=== PATIENT | male | born 1985 | race Two or more races ===

== ENCOUNTER 2020-11-22 07:24 | Outpatient (CLI) | payer OTHER | END 2020-11-22 07:33 | disposition home or self-care (01) | LOC: LAB 07:24 | PROVIDERS: ATTEND Internal Medicine Hematology & Oncology | DX: D50.8 Other iron deficiency anemias (principal); R79.89 Other specified abnormal findings of blood chemistry; I10 Essential (primary) hypertension; R74.02 Elevation of levels of lactic acid dehydrogenase [LDH]; K76.89 Other specified diseases of liver; D63.8 Anemia in other chronic diseases classified elsewhere; D55.0 Anemia due to glucose-6-phosphate dehydrogenase [G6PD] deficiency; D51.1 Vitamin B12 deficiency anemia due to selective vitamin B12 malabsorption with proteinuria; D51.0 Vitamin B12 deficiency anemia due to intrinsic factor deficiency; D63.1 Anemia in chronic kidney disease; E03.8 Other specified hypothyroidism; E06.3 Autoimmune thyroiditis ==

== ENCOUNTER 2020-11-22 08:18 | Outpatient (CLI) | payer OTHER | END 2020-11-22 08:22 | disposition home or self-care (01) | LOC: SONOGRAMA 08:18 | PROVIDERS: ATTEND Internal Medicine Hematology & Oncology | DX: E04.2 Nontoxic multinodular goiter (principal); D50.8 Other iron deficiency anemias ==

== ENCOUNTER 2021-02-02 06:52 | Outpatient (CLI) | payer OTHER | END 2021-02-02 06:57 | disposition home or self-care (01) | LOC: LAB 06:52 | PROVIDERS: ATTEND Internal Medicine Hematology & Oncology | DX: D50.8 Other iron deficiency anemias (principal); R79.89 Other specified abnormal findings of blood chemistry; R74.02 Elevation of levels of lactic acid dehydrogenase [LDH]; K76.89 Other specified diseases of liver; D63.1 Anemia in chronic kidney disease; N18.9 Chronic kidney disease, unspecified; N39.0 Urinary tract infection, site not specified; R80.8 Other proteinuria; R94.4 Abnormal results of kidney function studies; E04.8 Other specified nontoxic goiter ==

== ENCOUNTER → 2021-02-02 | Outpatient (CLI) | payer OTHER | END | disposition home or self-care (01) | LOC: SONOGRAMA 07:42 | PROVIDERS: ATTEND Internal Medicine Hematology & Oncology | DX: D50.8 Other iron deficiency anemias (principal); E04.8 Other specified nontoxic goiter; D63.1 Anemia in chronic kidney disease ==

== ENCOUNTER → 2021-02-04 | Outpatient (CLI) | payer OTHER | END | disposition home or self-care (01) | LOC: LAB 08:08 | PROVIDERS: ATTEND Internal Medicine Hematology & Oncology | DX: D50.8 Other iron deficiency anemias (principal); R79.89 Other specified abnormal findings of blood chemistry; I10 Essential (primary) hypertension; R74.02 Elevation of levels of lactic acid dehydrogenase [LDH]; K76.89 Other specified diseases of liver; D63.1 Anemia in chronic kidney disease; N39.0 Urinary tract infection, site not specified; R80.8 Other proteinuria; R94.4 Abnormal results of kidney function studies; E04.8 Other specified nontoxic goiter ==